=== PATIENT | male | born 1965 | race Caucasian/White ===

== ENCOUNTER 2019-07-02 13:27 | Inpatient (IN) | payer OTHER ==
--- NOTE | 2019-07-02 17:23 | HP ---
CIWA Score - Admission Criteria OASAS Guidelines: Admission for Medically Managed Detox: Requires at least one of the followin. CIWA greater than 12 2. Seizures within the past 24 hours 3. Delirium tremens within the past 24 hours 4. Hallucinations within the past 24 hours 5. Acute intervention needed for co occurring medical disorder 6. Acute intervention needed for co occurring psychiatric disorder 7. Severe withdrawal that cannot be handled at a lower level of care (continued vomiting, continued diarrhea, abnormal vital signs) requiring intravenous medication and/or fluids 8. Admission ROS S - HPI Chief Complaint: Seeking admission to Rehab. Allergies/Adverse Reactions: Allergies Allergy/AdvReac Type Severity Reaction Status Date / Time No Known Allergies Allergy Verified 07/02/19 17:17 History of Present Illness: 54 years old male with a long history of alcohol dependence (39 years) of alcohol dependence and 3 years of heroin dependence is seeking admission to detox. Patient reports that his last Rehab. was at [facility] in [place] in 2018. He reports 3 years of sobriety. He has medical history of hypertension, hyperlipidemia and psych. history of depression. He reports suicide attempt in 2018 and denies suicidal ideation at this time. Exam Limitations: No Limitations - Ebola screening Have you traveled outside of the country in the last 21 days: No Have you had contact with anyone from an Ebola affected area: No Do you have a fever: No - Review of Systems Constitutional: No Symptoms Reported EENT: reports: No Symptoms Reported Respiratory: reports: No Symptoms reported Cardiac: reports: No Symptoms Reported GI: reports: No Symptoms Reported : reports: No Symptoms Reported Musculoskeletal: reports: No Symptoms Reported Integumentary: reports: No Symptoms Reported Neuro: reports: No Symptoms reported Endocrine: reports: No Symptoms Reported Hematology: reports: No Symptoms Reported Psychiatric: reports: No Sypmtoms Reported, Mood/Affect Appropiate, Orientated x3 Other Systems: Reviewed and Negative Patient History - Patient Medical History Hx Anemia: No Hx Asthma: No Hx Chronic Obstructive Pulmonary Disease (COPD): No Hx Cancer: No Hx Cardiac Disorders: No Hx Congestive Heart Failure: No Hx Hypertension: Yes (Not on medication) Hx Hypercholesterolemia: Yes (Not on medication) HX Cerebrovascular Accident: No Hx Seizures: No Hx Diabetes: No Hx Gastrointestinal Disorders: No Hx Liver Disease: No Hx Genitourinary Disorders: No Hx Sexually Transmitted Disorders: No Hx Renal Disease (ESRD): No Hx Thyroid Disease: No Hx Human Immunodeficiency Virus (HIV): No (Negative ) Hx Hepatitis C: No Hx Depression: Yes (Not on medication) Hx Suicide Attempt: Yes (Attempt in 2018. denies suicidl ideation at this time) Hx Bipolar Disorder: No Hx Schizophrenia: No - Patient Surgical History Past Surgical History: Yes Other Surgical History: REMOVAL OF BEGNIGN CYST FROM THE BACK 1988 - PPD History Previous Implant?: Yes Documented Results: Negative w/o proof Implanted On Prior [facility] Admission?: No PPD to be Administered?: Yes - Reproductive History Patient is a Female of Child Bearing Age (11 -55 yrs old): No (male) - Smoking Cessation Smoking history: Current every day smoker Have you smoked in the past 12 months: Yes Aproximately how many cigarettes per day: 2 Hx Chewing Tobacco Use: No Initiated information on smoking cessation: Yes 'Breaking Loose' booklet given: 07/02/19 - Substance & Tx. History Hx Alcohol Use: Yes Hx Substance Use: Yes Substance Use Type: Alcohol, Cocaine Hx Substance Use Treatment: Yes ([facility] in [place], [place].) - Substances abused Alcohol Substance route: Oral Frequency: 3-6 times per week Amount used: 4 12 oz. beer Age of first use: 15 Date of last use: 07/01/19 Crack Substance route: Smoking Frequency: 3-6 times per week Age of first use: 51 Date of last use: 06/28/19 Admission Physical Exam [facility] - Physical General Appearance: Yes: Within Normal Limits HEENTM: Yes: Within Normal Limits Respiratory: Yes: Lungs Clear, Normal Breath Sounds, No Respiratory Distress Neck: Yes: Within Normal Limits, Supple Breast: Yes: Breast Exam Deferred Cardiology: Yes: Tachycardia Abdominal: Yes: Normal Bowel Sounds Genitourinary: Yes: Within Normal Limits Back: Yes: Normal Inspection Musculoskeletal: Yes: Within Normal Limits Extremities: Yes: Normal Inspection Neurological: Yes: Within Normal Limits, Alert, Normal Mood/Affect Integumentary: Yes: Warm Lymphatic: Yes: Within Normal Limits Cleared for Admission [facility] - Detox or Rehab [facility] Level of Care: Observation Bed Claeared for Rehab Admission: Yes Inpatient Rehab Admission - Rehab Decision to Admit Inpatient rehab admission?: Yes - Initial Determination Are CD services needed?: No Free of communicable disease: Yes Not in need of hospitalization: Yes - Rehab Admission Criteria Previous failed treatment: Yes Poor recovery environment: Yes Comorbidities: Yes Lacks judgement: No Patient is meeting Inpatient Rehab admission criteria:: Yes
[2019-07-02] MEDS ORDERED: MAG HYDROX/AL HYDROX/SIMETH 30 ML UNIT-DOSE CUP PO PRN (17:33)
[2019-07-02] MEDS ORDERED: MAGNESIUM CITRATE 300 ML BOTTLE PO PRN (17:33)
[2019-07-02] MEDS ORDERED: LOPERAMIDE HCL 2 MG CAPSULE PO PRN (17:33)
[2019-07-02] MEDS ORDERED: MAGNESIUM HYDROX 2400MG/30ML ORAL SUSPENSION 30 ML CUP PO PRN (17:33)
[2019-07-02] MEDS ORDERED: ACETAMINOPHEN 325 MG TABLET (FP) PO PRN (17:33)
[2019-07-02] MEDS ORDERED: IBUPROFEN 400 MG TABLET (FP) PO PRN (17:33)
[2019-07-02] MEDS ORDERED: P-EPHED 60MG/TRIPROLIDI 2.5MG TABLET PO PRN (17:33)
[2019-07-02] MEDS ORDERED: MENTHOL/PHENOL 1 EACH UD MM PRN (17:33)
[2019-07-02] MEDS ORDERED: NICOTINE POLACRILEX 2 MG GUM BC PRN (17:33)
[2019-07-02] MEDS ORDERED: guaiFENesin 200 MG/10 ML 10 ML UNIT-DOSE CUPS PO PRN (17:33)
[2019-07-02] MEDS ORDERED: cloNIDine HCL 0.1 MG TABLET PO ONE (17:36)
[2019-07-02 17:43] VITALS: BMI 22.8
[2019-07-02] MEDS: THIAMINE HCL 100 MG TABLET (FP) PO SCH (21:50)
[2019-07-02] MEDS: MELATONIN 5 MG TABLETS PO PRN (21:51)
--- NOTE | 2019-07-03 09:23 | CONSULT ---
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 This is patient's first admission to detox at [facility]. Patient admitted to for alcohol and cocaine dependence. Substance Abuse History: Smoking Cessation. Smoking history: Current every day smoker. Have you smoked in the past 12 months: Yes. Aproximately how many cigarettes per day: 2. Hx Chewing Tobacco Use: No. Initiated information on smoking cessation: Yes. 'Breaking Loose' booklet given: 07/02/19. - Substance & Tx. History. Hx Alcohol Use: Yes. Hx Substance Use: Yes. Substance Use Type : Alcohol, Cocaine. Hx Substance Use Treatment: Yes ([facility] in [place], [place].). - Substances abused. Alcohol. Substance route: Oral. Frequency: 3-6 times per week. Amount used: 4 12 oz. beer. Age of first use: 15. Date of last use: 07/01/19. Crack. Substance route: Smoking. Frequency: 3-6 times per week. Age of first use: 51. Date of last use: 06/28/19 Medical History: hypertension, Hypercholesterolemia, removal of benign cyst from the his back in 1988. Psychiatric History: Patient's first psychiatric contact was at 24 years of age after experiencing anxiety and depression during college. He saw an outpatient psychiatrist in [place] who diagnosed him with depression and prescribed him psychotropic medications. After three years he discontinued treatment and did not see a psychiatrist again until he was approximatley 29-30 years of age. Patient has seen several psychiatrist throughout the years due to his depression. Mr. Sanchez reports one psychiatric hospitalization 1.5 years ago at a hospital in [facility] after he had suicide attempt via overdose. After discharge he continued treatment at [facility] rehab and was prescribed Trintellix. (patient has been prescribed several psychotropic medicatons but only recalls taking trintellix). Patient has been off medications for 4 months. Patient is lost in follow up care. At present patient reports feeling sad, anhedonia, and mild anxiety. Patient denies thoughts or urges to hurt self others. Physical/Sexual Abuse/Trauma History: denies. Mental Status Exam - Mental Status Exam Alert and Oriented to: Time, Place, Person Cognitive Function: Good Patient Appearance: Well Groomed Mood: Sad Affect: Appropriate Patient Behavior: Appropriate, Cooperative Speech Pattern: Clear, Appropriate Voice Loudness: Normal Thought Process: Intact, Goal Oriented Thought Disorder: Not Present Hallucinations: Denies Suicidal Ideation: Denies Homicidal Ideation: Denies Insight/Judgement: Poor Sleep: Fair Appetite: Fair Muscle strength/Tone: Normal Gait/Station: Normal Psychiatric Findings - Problem List ([place] 1, 2,3) (1) Alcohol use disorder Current Visit: Yes Status: Chronic (2) Cocaine dependence Current Visit: Yes Status: Acute (3) Substance induced mood disorder Current Visit: Yes Status: Acute (4) Depressive disorder Current Visit: Yes Status: Chronic - Initial Treatment Plan Initial Treatment Plan: Psychoeducation provided. Rehab in progress. Will initiate treatment with Prozac 20mg daily. Benefits and side effects discussed. Verbal consent given.
[2019-07-03] MEDS: NICOTINE 14 MG/24 HOURS TOPICAL PATCH TD SCH (09:55)
[2019-07-03] MEDS: PRENATAL VITAMINS W/ FOLIC ACID TABLET (FP) PO SCH (09:56)
[2019-07-03] MEDS: FLUoxetine HCL 20 MG CAPSULE PO SCH (09:57)
[2019-07-03 10:49] LABS: URINE APPEARANCE CLOUDY; URINE BILIRUBIN NEGATIVE (NEGATIVE); URINE COLOR YELLOW; URINE GLUCOSE (UA) NEGATIVE (NEGATIVE); URINE KETONE NEGATIVE (NEGATIVE); URINE LEUK ESTERASE NEGATIVE (NEGATIVE); URINE NITRITE NEGATIVE (NEGATIVE); URINE PROTEIN NEGATIVE (NEGATIVE); URINE UROBILINOGEN 0.2 mg/dL (0.2-1.0)
[2019-07-03 12:02] LABS: HEMATOCRIT 43.8 % (35.4-49); HEMOGLOBIN 14.7 GM/dL (11.7-16.9); MCH 29.8 pg (25.7-33.7); MCHC 33.6 g/dl (32.0-35.9); MEAN CELL VOLUME 88.7 fl (80-96); MEAN PLT VOLUME 9.1 fl (7.5-11.1); PLATELET COUNT 205 K/MM3 (134-434); RBC 4.93 M/mm3 (4.00-5.60); RDW 14.1 % (11.9-15.9)
[2019-07-03 12:13] LABS: ALBUMIN 3.4 g/dl (3.4-5.0); BILIRUBIN,TOTAL 0.5 mg/dL (0.2-1); BLOOD UREA NITROGEN 12.5 mg/dL (7-18); CALCIUM 8.8 mg/dL (8.5-10.1); CREATININE 0.9 mg/dL (0.55-1.3); TOT PROT 6.1 g/dl (6.4-8.2)
[2019-07-03] MEDS: THIAMINE HCL 100 MG TABLET (FP) PO SCH (21:21)
[2019-07-03] MEDS: MELATONIN 5 MG TABLETS PO PRN (21:21)
[2019-07-04] MEDS: FLUoxetine HCL 20 MG CAPSULE PO SCH (09:31)
[2019-07-04] MEDS: PRENATAL VITAMINS W/ FOLIC ACID TABLET (FP) PO SCH (09:31)
[2019-07-04] MEDS: NICOTINE 14 MG/24 HOURS TOPICAL PATCH TD SCH (09:31)
--- NOTE | 2019-07-04 14:37 | EKG ---
Test Reason : Blood Pressure : / mmHG Vent. Rate : 070 BPM Atrial Rate : 070 BPM P-R Int : 164 ms QRS Dur : 104 ms QT Int : 442 ms P-R-T Axes : 046 -39 016 degrees QTc Int : 477 ms NORMAL SINUS RHYTHM LEFT AXIS DEVIATION MINIMAL VOLTAGE CRITERIA FOR LVH, MAY BE NORMAL VARIANT ABNORMAL ECG Confirmed by MD MARIUSZ, VIKTORIYA ([id number]) on 07/04/2019 2:37:02 PM Referred By: Confirmed By:VIKTORIYA VEE MD
[2019-07-04] MEDS: MELATONIN 5 MG TABLETS PO PRN (21:25)
[2019-07-04] MEDS: THIAMINE HCL 100 MG TABLET (FP) PO SCH (21:25)
[2019-07-05] MEDS ORDERED: amLODIPine BESYLATE 10 MG TABLET (FP) PO SCH (10:00)
[2019-07-05] MEDS: FLUoxetine HCL 20 MG CAPSULE PO SCH (10:06)
[2019-07-05] MEDS: PRENATAL VITAMINS W/ FOLIC ACID TABLET (FP) PO SCH (10:06)
[2019-07-05] MEDS: NICOTINE 14 MG/24 HOURS TOPICAL PATCH TD SCH (10:06)
[2019-07-05] MEDS: MELATONIN 5 MG TABLETS PO PRN (21:20)
[2019-07-05] MEDS: THIAMINE HCL 100 MG TABLET (FP) PO SCH (21:20)
[2019-07-06] MEDS: amLODIPine BESYLATE 10 MG TABLET (FP) PO SCH (08:02)
--- NOTE | 2019-07-06 09:27 | PN ---
[facility] Progress Note Note: Patient seen for elevated BP. Patient denies chest pain, sob and dizziness. States having mild headache. Has hx of HTN and treated with Benicar 10-40mg daily. Currently receiving amlodipine 10mg daily. Vital Signs (72 hours) 07/04/19 07/04/19 07/04/19 00:26 03:23 07:12 Temperature 98.0 F Pulse Rate 62 Respiratory 18 18 18 Rate Blood Pressure 155/87 07/05/19 07/05/19 07/05/19 00:30 03:30 06:00 Temperature 98.4 F Pulse Rate 62 Respiratory 18 18 18 Rate Blood Pressure 163/106 H 07/05/19 07/05/19 07/05/19 09:08 12:10 14:47 Temperature 97.6 F Pulse Rate 71 66 77 Respiratory 18 18 Rate Blood Pressure 152/105 H 164/118 H 140/100 07/06/19 07/06/19 07/06/19 03:33 06:47 07:12 Temperature 98.5 F Pulse Rate 66 Respiratory 18 18 Rate Blood Pressure 148/109 H 164/100 Laboratory Tests 07/03/19 07/03/19 07/03/19 08:00 08:40 08:40 WBC 5.0 RBC 4.93 Hgb 14.7 Hct 43.8 MCV 88.7 MCH 29.8 MCHC 33.6 RDW 14.1 Plt Count 205 MPV 9.1 Sodium 143 Potassium 4.0 Chloride 109 H Carbon Dioxide 30 Anion Gap 4 L BUN 12.5 Creatinine 0.9 Est GFR (CKD-EPI)AfAm 111.83 Est GFR (CKD-EPI)NonAf 96.49 Random Glucose 125 H Calcium 8.8 Total Bilirubin 0.5 AST 8 L ALT 18 Alkaline Phosphatase 50 Total Protein 6.1 L Albumin 3.4 Urine Color Yellow Urine Appearance Cloudy Urine pH 5.0 Ur Specific [place] 1.026 Urine Protein Negative Urine Glucose (UA) Negative Urine Ketones Negative Urine Blood Negative Urine Nitrite Negative Urine Bilirubin Negative Urine Urobilinogen 0.2 Ur Leukocyte Esterase Negative RPR Titer 07/03/19 08:40 WBC RBC Hgb Hct MCV MCH MCHC RDW Plt Count MPV Sodium Potassium Chloride Carbon Dioxide Anion Gap BUN Creatinine Est GFR (CKD-EPI)AfAm Est GFR (CKD-EPI)NonAf Random Glucose Calcium Total Bilirubin AST ALT Alkaline Phosphatase Total Protein Albumin Urine Color Urine Appearance Urine pH Ur Specific [place] Urine Protein Urine Glucose (UA) Urine Ketones Urine Blood Urine Nitrite Urine Bilirubin Urine Urobilinogen Ur Leukocyte Esterase RPR Titer Nonreactive PE alert and oriented x 3 skin warm and dry +perrla,eoms intact bl car s1, s2 resp cta bl ext full rom, amb ad sera no tremors A/P: HTN ETOH/Jamaal dependence Will add Diovan 320mg daily (equilvalent to Olmesartan 40mg as per pharmacy) continue amlodipine as ordered monitor clinically
[2019-07-06] MEDS: PRENATAL VITAMINS W/ FOLIC ACID TABLET (FP) PO SCH (10:12)
[2019-07-06] MEDS: FLUoxetine HCL 20 MG CAPSULE PO SCH (10:13)
[2019-07-06] MEDS: NICOTINE 14 MG/24 HOURS TOPICAL PATCH TD SCH (10:14)
[2019-07-06] MEDS: VALSARTAN 160 MG TABLET (UD) PO SCH (10:55)
[2019-07-06] MEDS: THIAMINE HCL 100 MG TABLET (FP) PO SCH (21:34)
[2019-07-06] MEDS: MELATONIN 5 MG TABLETS PO PRN (21:35)
[2019-07-07] MEDS: amLODIPine BESYLATE 10 MG TABLET (FP) PO SCH (05:59)
[2019-07-07 06:52] VITALS: TEMP 98.7
--- NOTE | 2019-07-07 08:47 | DS ---
[facility] Rehab Discharge Summary - [facility] Rehab Discharge Summary Admission Date: 07/02/19 Discharge Date: 07/07/19 - History Present History: Alcohol dependence, Cocaine dependence Pertinent Past History: 54 years old male with a long history of alcohol dependence (39 years) of alcohol dependence and 3 years of heroin dependence. Patient reports that his last Rehab was at [facility] in [place] in 2018. He reports 3 years of sobriety. He has medical history of hypertension, hyperlipidemia and psych. history of depression. He reports suicide attempt in 2018 and denies suicidal ideation at this time. - Discharge Physical Exam Vital Signs: Vital Signs Temperature 98.7 F 07/07/19 06:52 Pulse Rate 68 07/07/19 06:52 Respiratory Rate 18 07/07/19 06:52 Blood Pressure 161/95 07/07/19 06:52 O2 Sat by Pulse Oximetry (%) Pertinent Admission Physical Exam Findings: Physical General Appearance: apparent distress HEENTM: Normocephalic Respiratory: respirations unlabored Neck: Suppled Musculoskeletal: Full weight bearing Neurological: CN 2-12 intact - Treatment Discharge Condition: Discharge condition good (Patient will go to [facility]. Medically stable for discharge.) Hospital Course: Medically stable for discharge - Medication Discharge Medications: Ambulatory Orders Amlodipine Bes/Olmesartan Med [Amlodipine-Olmesartan 10-40 mg] 1 each PO DAILY 07/02/19 Aripiprazole 5 mg PO DAILY 07/02/19 Nebivolol HCl [Bystolic] 5 mg PO DAILY 07/02/19 Vortioxetine Hydrobromide [Trintellix] 20 mg PO HS 07/02/19 Amlodipine Besylate [Norvasc -] 10 mg PO DAILY@0600 #14 tablet 07/06/19 Valsartan [Diovan] 320 mg PO DAILY #14 tablet 07/06/19 - Discharge Instructions Diet, activity, other medical instructions: Diet: as tolerated Activity: as tolerated Other medical instructions: Please follow up with discharge referral. - AMA Did Patient Leave Against Medical Advice: No
[2019-07-07] MEDS: PRENATAL VITAMINS W/ FOLIC ACID TABLET (FP) PO SCH (09:04)
[2019-07-07] MEDS: FLUoxetine HCL 20 MG CAPSULE PO SCH (09:04)
[2019-07-07] MEDS: VALSARTAN 160 MG TABLET (UD) PO SCH (09:04)
[2019-07-07 09:09] VITALS: BP 142/82; PULSE 73
== END 2019-07-07 09:15 | disposition home or self-care (01) | DRG 895 ==
LOC: YASAS 13:27 → Y3W 18:07
PROVIDERS: ADMIT Allergy & Immunology; ATTEND Allergy & Immunology
PROC: HZ42ZZZ Group Counseling for Substance Abuse Treatment, Cognitive-Behavioral (ICD-10-PCS; principal; 2019-07-02)
DX: F10.20 Alcohol dependence, uncomplicated (principal); F14.20 Cocaine dependence, uncomplicated; F17.210 Nicotine dependence, cigarettes, uncomplicated; F19.24 Other psychoactive substance dependence with psychoactive substance-induced mood disorder; F32.9 Major depressive disorder, single episode, unspecified; I10 Essential (primary) hypertension; Z91.5 Personal history of self-harm
CPT/HCPCS: 36415; 80053; 81003; 85027; 86593; 93005; 93010; J0735